=== PATIENT | male | born 1985 | race Caucasian/White ===

== ENCOUNTER 2020-05-26 11:45 | Emergency (ER) | payer MEDICARE, MEDICAID ==
[~2020-05-26] VITALS: Ht 190.5 cm; Wt 165.6 kg
[2020-05-26] MEDS ORDERED: PROZAC10 M1 PO (11:57)
[2020-05-26] MEDS ORDERED: LITHIUM CARBON300 M3 PO (11:57)
[2020-05-26] MEDS ORDERED: VRAYLAR6 MG PO (11:58)
[2020-05-26] MEDS ORDERED: DEPAKOTE500 MG PO (11:58)
[2020-05-26 12:06] LABS: URINE BILIRUBIN NEGATIVE (Negative); URINE BLOOD NEGATIVE (Negative); URINE CLARITY CLEAR; URINE COLOR YELLOW; URINE GLUCOSE-RANDOM NEGATIVE (Negative); URINE KETONES NEGATIVE (Negative); URINE LEUKOCYTES-REFLEX NEGATIVE (Negative); URINE NITRITE-REFLEX NEGATIVE (Negative); URINE PROTEIN NEGATIVE (Negative); URINE SPECIFIC GRAVITY <= 1.005 (1.005-1.030); URINE UROBILINOGEN 0.2 E.U./dl (0.2-1.0)
[2020-05-26 12:28] LABS: ABSOLUTE BASOPHILS 0.1 thou/uL (0.0-0.2); ABSOLUTE EOSINOPHILS 0.2 thou/uL (0.0-0.7); ABSOLUTE LYMPHOCYTES 2.9 thou/uL (0.8-5.3); ABSOLUTE MONOCYTES 0.7 thou/uL (0.0-1.2); ABSOLUTE NEUTROPHILS 7.3 thou/uL (1.6-8.1); BASOPHILS 0.9 %; EOSINOPHILS 2.1 %; HEMOGLOBIN 14.3 gm/dL (14.0-18.0); MCH 29.9 pg (26.0-34.0); MCHC 34.9 g/dL (28.0-37.0); MCV 85.7 fL (80.0-100.0); MONOCYTES 6.4 %; MPV 9.8 fl. (7.2-11.1); NUCLEATED RBCS 0 /100WBC; PLATELET COUNT* 151 thou/uL (150-400); POLYS 64.6 %; RBC 4.78 mil/uL (4.50-6.00); RDW-CV 13.3 % (10.5-14.5); WBC 11.3 thou/uL (4.0-11.0)
[2020-05-26 12:39] LABS: CALCIUM 9.5 mg/dL (8.5-10.1); CREATININE 0.7 mg/dL (0.6-1.3)
[2020-05-26 12:41] LABS: POTASSIUM 2.7 mmol/L (3.5-5.1)
[2020-05-26 12:44] LABS: ALBUMIN 3.6 g/dL (3.4-5.0); TOTAL BILIRUBIN 0.4 mg/dL (<0.1-1.0); TOTAL PROTEIN 6.8 g/dL (6.4-8.2)
[2020-05-26] MEDS ORDERED: NORCO 5-325 TA1 EAC2 PO (14:42)
[2020-05-26] MEDS ORDERED: ONDANSETRON HCL4 M2 PO (14:43)
[2020-05-26] MEDS ORDERED: POTASSIUM20 PO (14:50)
[2020-05-26 15:08] VITALS: BP 138/65
== END 2020-05-26 15:00 | disposition home or self-care (01) ==
LOC: M.ERS 11:45
PROVIDERS: Family Medicine
DX: E87.6 Hypokalemia (principal); R10.31 Right lower quadrant pain; Z88.8 Allergy status to other drugs, medicaments and biological substances

== ENCOUNTER 2020-05-27 07:24 | Emergency (ER) | payer MEDICARE, MEDICAID ==
[~2020-05-27] VITALS: Ht 190.5 cm; Wt 165.6 kg
[~2020-05-27 07:24] MED LIST: DEPAKOTE500 MG PO; LITHIUM CARBON300 M3 PO; NORCO 5-325 TA1 EAC2 PO; ONDANSETRON HCL4 M2 PO; POTASSIUM20 PO; PROZAC10 M1 PO; VRAYLAR6 MG PO
[2020-05-27 07:57] LABS: ABSOLUTE BASOPHILS 0.1 thou/uL (0.0-0.2); ABSOLUTE EOSINOPHILS 0.3 thou/uL (0.0-0.7); ABSOLUTE LYMPHOCYTES 2.1 thou/uL (0.8-5.3); ABSOLUTE MONOCYTES 0.5 thou/uL (0.0-1.2); ABSOLUTE NEUTROPHILS 6.3 thou/uL (1.6-8.1); BASOPHILS 0.9 %; HEMATOCRIT 40.3 % (42.0-52.0); LYMPHOCYTES 22.6 %; MCH 29.6 pg (26.0-34.0); MCHC 34.6 g/dL (28.0-37.0); MCV 85.5 fL (80.0-100.0); MONOCYTES 5.7 %; MPV 9.6 fl. (7.2-11.1); NUCLEATED RBCS 0 /100WBC; PLATELET COUNT* 143 thou/uL (150-400); POLYS 67.8 %; RBC 4.72 mil/uL (4.50-6.00); RDW-CV 13.1 % (10.5-14.5); WBC 9.3 thou/uL (4.0-11.0)
[2020-05-27 08:04] LABS: CALCIUM 8.9 mg/dL (8.5-10.1); CREATININE 0.6 mg/dL (0.6-1.3); POTASSIUM 3.1 mmol/L (3.5-5.1)
[2020-05-27 08:08] LABS: ALBUMIN 3.4 g/dL (3.4-5.0); TOTAL BILIRUBIN 0.4 mg/dL (<0.1-1.0); TOTAL PROTEIN 6.4 g/dL (6.4-8.2)
[2020-05-27 08:42] VITALS: BP 152/81
== END 2020-05-27 08:45 | disposition home or self-care (01) ==
LOC: M.ERS 07:24
PROVIDERS: Family Medicine
DX: B34.9 Viral infection, unspecified (principal); Z20.828 Contact with and (suspected) exposure to other viral communicable diseases; Z88.8 Allergy status to other drugs, medicaments and biological substances

== ENCOUNTER 2020-08-13 16:22 | Emergency (ER) | payer MEDICARE, MEDICAID ==
[~2020-08-13] VITALS: Ht 190.5 cm; Wt 174.6 kg
[~2020-08-13 16:22] MED LIST changes: -PROZAC10 M1 PO; +PROZAC20 M1 PO
[2020-08-13 16:25] VITALS: BP 162/103
[2020-08-13] MEDS ORDERED: LATUDA80 MG PO (16:45)
== END 2020-08-13 17:02 | disposition home or self-care (01) ==
LOC: M.ERS 16:22
DX: Z00.8 Encounter for other general examination (principal); F17.210 Nicotine dependence, cigarettes, uncomplicated; Z88.8 Allergy status to other drugs, medicaments and biological substances

== ENCOUNTER 2020-08-21 11:33 | Emergency (ER) | payer MEDICARE, MEDICAID ==
[~2020-08-21] VITALS: Ht 193 cm; Wt 145.2 kg
[~2020-08-21 11:33] MED LIST changes: +LATUDA80 MG PO
[2020-08-21] MEDS ORDERED: PRAVASTATIN SOD20 MG PO (11:44)
[2020-08-21 11:59] LABS: HEMATOCRIT 39.8 % (42.0-52.0); HEMOGLOBIN 13.8 gm/dL (14.0-18.0); MCH 29.7 pg (26.0-34.0); MCHC 34.7 g/dL (28.0-37.0); MCV 85.5 fL (80.0-100.0); MPV 10.5 fl. (7.2-11.1); NUCLEATED RBCS 0 /100WBC; PLATELET COUNT* 144 thou/uL (150-400); RBC 4.66 mil/uL (4.50-6.00); RDW-CV 13.1 % (10.5-14.5); WBC 12.1 thou/uL (4.0-11.0)
[2020-08-21 12:08] LABS: CREATININE 0.6 mg/dL (0.6-1.3)
[2020-08-21 12:13] LABS: ALBUMIN 3.6 g/dL (3.4-5.0); TOTAL BILIRUBIN 0.6 mg/dL (<0.1-1.0); TOTAL PROTEIN 6.6 g/dL (6.4-8.2)
[2020-08-21 12:43] LABS: URINE BILIRUBIN NEGATIVE (Negative); URINE BLOOD NEGATIVE (Negative); URINE CLARITY CLEAR; URINE COLOR YELLOW; URINE GLUCOSE-RANDOM NEGATIVE (Negative); URINE KETONES NEGATIVE (Negative); URINE LEUKOCYTES-REFLEX TRACE (Negative); URINE NITRITE-REFLEX NEGATIVE (Negative); URINE PROTEIN NEGATIVE (Negative); URINE UROBILINOGEN 0.2 E.U./dl (0.2-1.0)
[2020-08-21 12:59] LABS: ABSOLUTE EOSINOPHILS 0.2 thou/uL (0.0-0.7); ABSOLUTE MONOCYTES 0.8 thou/uL (0.0-1.2); ATYPICAL LYMPHS 6 %; PLATELET ESTIMATE ADEQUATE
[2020-08-21 13:05] LABS: SQUAMOUS 0-3 Few /LPF (0-3); URINE WBC-REFLEX 0-5 Rare /HPF (0-5)
[2020-08-21 13:06] LABS: BACTERIA-REFLEX 1-9 Few /HPF (None Seen); CASTS None Seen /LPF (None Seen); CRYSTALS None Seen /LPF (None Seen); MUCUS None Seen strn/LPF (None Seen); URINE RBC 0-2 Rare /HPF (0-2)
[2020-08-21] MEDS ORDERED: KLOR-CON M2020 MEQ PO (13:28)
[2020-08-21 13:39] VITALS: BP 147/90
--- NOTE | 2020-08-21 17:31 | EKG ---
[place] [address] ELECTROCARDIOGRAM REPORT Name: GABRIEL,TRUNG T Room: 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[employer] : 1985 Requested By: Tl Kruger Order Number: [id number] MD: David Raymundo Measurements Intervals [place] Rate: 61 P: 12 WI: 203 QRS: 18 QRSD: 107 T: 55 QT: 416 QTc: 419 Interpretive Statements Sinus rhythm Borderline prolonged WI interval Baseline wander in lead(s) V2 No previous ECG available for comparison Electronically Signed On 08-21-2020 17:31:25 BLOOD BANK BOOKING CLERK by David Raymundo [email or web address] <ELECTRONICALLY SIGNED> By: David Raymundo MD, [facility] 08/21/20 1731 1135 1135 David Raymundo MD, [facility] /EPI
== END 2020-08-21 13:40 | disposition home or self-care (01) ==
LOC: M.ERS 11:33
PROVIDERS: Nurse Practitioner
DX: R20.0 Anesthesia of skin (principal); R11.0 Nausea; R42 Dizziness and giddiness; Z98.890 Other specified postprocedural states; E78.00 Pure hypercholesterolemia, unspecified; E66.9 Obesity, unspecified; Z68.39 Body mass index [BMI] 39.0-39.9, adult; Z79.899 Other long term (current) drug therapy; Z88.8 Allergy status to other drugs, medicaments and biological substances; F17.210 Nicotine dependence, cigarettes, uncomplicated

== ENCOUNTER 2020-09-29 21:47 | Emergency (ER) | payer MEDICARE, MEDICAID ==
[~2020-09-29] VITALS: Ht 190.5 cm; Wt 172.4 kg
[~2020-09-29 21:47] MED LIST changes: +KLOR-CON M2020 MEQ PO; +PRAVASTATIN SOD20 MG PO
[2020-09-29 22:50] LABS: ABSOLUTE BASOPHILS 0.1 thou/uL (0.0-0.2); ABSOLUTE EOSINOPHILS 0.3 thou/uL (0.0-0.7); ABSOLUTE LYMPHOCYTES 3.7 thou/uL (0.8-5.3); ABSOLUTE MONOCYTES 0.8 thou/uL (0.0-1.2); ABSOLUTE NEUTROPHILS 7.5 thou/uL (1.6-8.1); BASOPHILS 0.9 %; EOSINOPHILS 2.5 %; HEMATOCRIT 41.7 % (42.0-52.0); HEMOGLOBIN 14.2 gm/dL (14.0-18.0); LYMPHOCYTES 29.7 %; MCH 29.2 pg (26.0-34.0); MCHC 33.9 g/dL (28.0-37.0); MCV 86.1 fL (80.0-100.0); MONOCYTES 6.6 %; MPV 9.6 fl. (7.2-11.1); NUCLEATED RBCS 0 /100WBC; PLATELET COUNT* 153 thou/uL (150-400); POLYS 60.3 %; RBC 4.85 mil/uL (4.50-6.00); RDW-CV 13.5 % (10.5-14.5); WBC 12.4 thou/uL (4.0-11.0)
[2020-09-29 22:51] LABS: URINE BILIRUBIN NEGATIVE (Negative); URINE BLOOD NEGATIVE (Negative); URINE CLARITY CLEAR; URINE COLOR YELLOW; URINE GLUCOSE-RANDOM NEGATIVE (Negative); URINE KETONES NEGATIVE (Negative); URINE LEUKOCYTES-REFLEX NEGATIVE (Negative); URINE NITRITE-REFLEX NEGATIVE (Negative); URINE PROTEIN NEGATIVE (Negative); URINE SPECIFIC GRAVITY <= 1.005 (1.005-1.030); URINE UROBILINOGEN 0.2 E.U./dl (0.2-1.0)
[2020-09-29 23:02] LABS: CALCIUM 9.8 mg/dL (8.5-10.1); CREATININE 0.7 mg/dL (0.6-1.3); POTASSIUM 3.4 mmol/L (3.5-5.1)
[2020-09-29 23:06] LABS: ALBUMIN 3.7 g/dL (3.4-5.0); TOTAL BILIRUBIN 0.4 mg/dL (<0.1-1.0); TOTAL PROTEIN 7.1 g/dL (6.4-8.2)
[2020-09-30] MEDS ORDERED: ZOFRAN ODT4 MG PO (01:35)
[2020-09-30] MEDS ORDERED: HYDROCODON-ACE1 EAC7 PO (01:35)
[2020-09-30 01:48] VITALS: BP 171/104
== END 2020-09-30 01:50 | disposition home or self-care (01) ==
LOC: M.ERS 21:47
PROVIDERS: Personal Emergency Response Attendant
DX: R16.1 Splenomegaly, not elsewhere classified (principal); F17.210 Nicotine dependence, cigarettes, uncomplicated; Z88.8 Allergy status to other drugs, medicaments and biological substances

== ENCOUNTER 2020-10-01 06:12 | Emergency (ER) | payer MEDICARE, MEDICAID ==
[~2020-10-01] VITALS: Ht 190.5 cm; Wt 172.4 kg
[~2020-10-01 06:12] MED LIST changes: +HYDROCODON-ACE1 EAC7 PO; +ZOFRAN ODT4 MG PO
[2020-10-01 07:45] LABS: ABSOLUTE BASOPHILS 0.1 thou/uL (0.0-0.2); ABSOLUTE EOSINOPHILS 0.2 thou/uL (0.0-0.7); ABSOLUTE LYMPHOCYTES 2.4 thou/uL (0.8-5.3); ABSOLUTE MONOCYTES 0.8 thou/uL (0.0-1.2); ABSOLUTE NEUTROPHILS 6.1 thou/uL (1.6-8.1); BASOPHILS 0.8 %; EOSINOPHILS 2.4 %; HEMATOCRIT 40.7 % (42.0-52.0); HEMOGLOBIN 13.9 gm/dL (14.0-18.0); LYMPHOCYTES 24.9 %; MCH 29.3 pg (26.0-34.0); MCHC 34.1 g/dL (28.0-37.0); MCV 85.8 fL (80.0-100.0); MONOCYTES 8.2 %; MPV 10.6 fl. (7.2-11.1); NUCLEATED RBCS 0 /100WBC; PLATELET COUNT* 143 thou/uL (150-400); POLYS 63.7 %; RBC 4.75 mil/uL (4.50-6.00); RDW-CV 13.3 % (10.5-14.5); WBC 9.5 thou/uL (4.0-11.0)
[2020-10-01 07:50] LABS: CALCIUM 9.4 mg/dL (8.5-10.1); CREATININE 0.6 mg/dL (0.6-1.3); POTASSIUM 3.2 mmol/L (3.5-5.1)
[2020-10-01 07:54] LABS: ALBUMIN 3.6 g/dL (3.4-5.0); TOTAL BILIRUBIN 0.3 mg/dL (<0.1-1.0); TOTAL PROTEIN 6.8 g/dL (6.4-8.2)
[2020-10-01 08:43] VITALS: BP 157/74
--- NOTE | 2020-10-01 14:21 | EKG ---
[place] [address] ELECTROCARDIOGRAM REPORT Name: GABRIELTRUNG CHAN Room: 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
== END 2020-10-01 08:44 | disposition home or self-care (01) ==
LOC: M.ERS 06:12
PROVIDERS: Family Medicine
DX: R10.12 Left upper quadrant pain (principal); F17.210 Nicotine dependence, cigarettes, uncomplicated; Z88.8 Allergy status to other drugs, medicaments and biological substances

== ENCOUNTER → 2020-10-15 | Outpatient (CLI) | payer MEDICARE, MEDICAID | LOC: M.ULTRA 10:49 | PROVIDERS: ATTEND Internal Medicine Gastroenterology | DX: R16.2 Hepatomegaly with splenomegaly, not elsewhere classified (principal); D69.6 Thrombocytopenia, unspecified ==

== ENCOUNTER 2021-01-22 14:59 | Emergency (ER) | payer MEDICARE, MEDICAID ==
[~2021-01-22] VITALS: Ht 190.5 cm; Wt 165.6 kg
[2021-01-22 18:06] LABS: ABSOLUTE EOSINOPHILS 0.1 thou/uL (0.0-0.7); ABSOLUTE LYMPHOCYTES 2.7 thou/uL (0.8-5.3); ABSOLUTE MONOCYTES 0.4 thou/uL (0.0-1.2); ABSOLUTE NEUTROPHILS 4.1 thou/uL (1.6-8.1); BASOPHILS 0.2 %; EOSINOPHILS 1.5 %; HEMOGLOBIN 14.7 gm/dL (14.0-18.0); LYMPHOCYTES 36.9 %; MCHC 35.1 g/dL (28.0-37.0); MCV 82.6 fL (80.0-100.0); MONOCYTES 5.8 %; MPV 10.4 fl. (7.2-11.1); NUCLEATED RBCS 0 /100WBC; PLATELET COUNT* 127 thou/uL (150-400); POLYS 55.6 %; RBC 5.09 mil/uL (4.50-6.00); RDW-CV 13.1 % (10.5-14.5); WBC 7.4 thou/uL (4.0-11.0)
[2021-01-22 18:09] LABS: CALCIUM 9.6 mg/dL (8.5-10.1); CREATININE 0.7 mg/dL (0.6-1.3)
[2021-01-22 18:12] LABS: POTASSIUM 2.8 mmol/L (3.5-5.1)
[2021-01-22] MEDS ORDERED: KLOR-CON 10 ER10 MEQ PO (18:50)
[2021-01-22] MEDS ORDERED: MECLIZINE HCL25 M1 PO (18:50)
[2021-01-22 18:57] VITALS: BP 129/68
--- NOTE | 2021-01-23 10:20 | EKG ---
[place] [address] ELECTROCARDIOGRAM REPORT Name: GABRIELTRUNG T Room: 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[facility] : 1985 Requested By: Jack Owens Order Number: [id number] MD: Benjy Lynch Measurements Intervals [place] Rate: 57 P: 24 MS: 191 QRS: 37 QRSD: 115 T: 52 QT: 468 QTc: 456 Interpretive Statements Sinus rhythm Nonspecific intraventricular conduction delay Baseline wander in lead(s) V2 Compared to ECG 10/01/2020 07:48:46 no change Electronically Signed On 01-23-2021 10:20:07 CDT by Benjy Lynch [email or web address] <ELECTRONICALLY SIGNED> By: Benjy Lynch MD, [facility] 01/23/21 1020 1753 1753 Benjy Lynch MD, [facility] /EPI
== END 2021-01-22 18:59 | disposition home or self-care (01) ==
LOC: M.ERS 14:59
PROVIDERS: Nurse Practitioner Psychiatric/Mental Health
DX: R42 Dizziness and giddiness (principal); Z20.822 Contact with and (suspected) exposure to COVID-19; E87.6 Hypokalemia; R51.9 Headache, unspecified; R11.0 Nausea; F17.210 Nicotine dependence, cigarettes, uncomplicated; Z98.890 Other specified postprocedural states; Z88.8 Allergy status to other drugs, medicaments and biological substances

== ENCOUNTER 2021-02-09 23:25 | Emergency (ER) | payer MEDICARE, MEDICAID ==
[~2021-02-09] VITALS: Ht 190.5 cm; Wt 164.7 kg
--- NOTE | ~2021-02-09 | EMS ---
[address] [address] EMS Patient Care Report Name: TRUNG RIOS [id number]: 02/09/21 Attend Phys: Discharge: Date of : 87 Report #: [id number] THIS REPORT FOR: //name// Report Transmitted: 02/09/2021 23:01 EMS Care Summary [place] [facility] [employer] [facility] Incident 21-072 @ 02/09/2021 22:57 Incident Location [address] [place] [address] Patient TRUNG RIOS Male, 35 Years 1985 Patient Address [address] [place] [address] Patient History Hypertension (HTN),Hyperlipidemia,Bipolar II Disorder, Patient Allergies No known allergies, Patient Medications Atorvastatin, Prozac, Chief Complaint Kidney Pain Disposition Transported No Lights/[place] Dispatch Reason Sick Person Transported To [facility] Narrative Med 1 and Utility 1 were dispatched for a [age] year-old male c/o lower back pain and pain upon urination since this morning. Upon arrival, patient [place] [id number] EMS Patient Care Report Name: TRUNG RIOS Room: [facility]#: [id number] Admission: 02/09/21 Attend Phys: Discharge: Date of : 87 Report #: [id number] was standing our on the curb waiting for EMS. Patient was AOx3, and did not appear in any pain or distress. Patient reported he had a 10/10 pain. Patient was assisted to the ambulance and secured to the stretcher via seatbelts and Med 1 went en route to [facility]. In the ambulance, patients vitals were obtained and monitored throughout transport. Patient rested comfortably throughout transport. Hospital report was given via radio without any questions or orders being received or requested. Med 1 arrived at the hospital. Patient asked if he could walk into the hospital because the stretcher was not comfortable. The patient reported he felt well enough to walk in. Patient walked into the ER and was sent out to triage. Patient care was transferred to the ER Triage nurse. Med 1 returned back into service. [id number] KShook Initial Vitals @23:15R: 20,BP: 156/84,GCS: 15,SpO2: 98,Revised Trauma: 12, @23:05P: 84,R: 20,BP: 154/88,Pain: 0/10,GCS: 15,SpO2: 98,Revised Trauma: 12, Impression Back Pain Timeline 22:57,Call Received 22:57,Dispatched 22:57,En Route 23:00,On Scene 23:01,At Patient 23:02,Depart Scene 23:05,BP: 154/88 M,PULSE: 84,RR: 20 R,SPO2: 98 Ox,ETCO2: ,BG: ,PAIN: 0,GCS: 15, 23:15,BP: 156/84 M,PULSE: ,RR: 20 R,SPO2: 98 Ox,ETCO2: ,BG: ,PAIN: ,GCS: 15, 23:22,At Destination 23:42,Call Closed 23:42,In District Disclaimer v1.1 Copyright 2020 [employer] This EMS Care Summary contains data elements from the applicable legal record (which may be displayed differently). It is [place] [address] EMS Patient Care Report Name: GABRIELTRUNG T Room: [facility]#: [id number] Admission: 02/09/21 Attend Phys: Discharge: Date of : 87 Report #: [id number] information for the following purposes: continuity of care, clinical quality, and state data reporting. The complete legal record is available to ED staff and administrators of the receiving hospital in [employer] Patient Tracker. All data is provided "as is."
[~2021-02-09 23:25] MED LIST changes: +KLOR-CON 10 ER10 MEQ PO; +MECLIZINE HCL25 M1 PO
[2021-02-09] MEDS ORDERED: CARBAMAZEPINE100 M2 (23:29)
[2021-02-10 00:05] LABS: ABSOLUTE BASOPHILS 0.1 thou/uL (0.0-0.2); ABSOLUTE EOSINOPHILS 0.1 thou/uL (0.0-0.7); ABSOLUTE LYMPHOCYTES 2.9 thou/uL (0.8-5.3); ABSOLUTE MONOCYTES 0.8 thou/uL (0.0-1.2); ABSOLUTE NEUTROPHILS 5.6 thou/uL (1.6-8.1); BASOPHILS 1.1 %; EOSINOPHILS 1.3 %; HEMATOCRIT 41.8 % (42.0-52.0); HEMOGLOBIN 14.5 gm/dL (14.0-18.0); LYMPHOCYTES 30.3 %; MCH 28.7 pg (26.0-34.0); MCHC 34.7 g/dL (28.0-37.0); MCV 82.9 fL (80.0-100.0); MONOCYTES 8.2 %; MPV 10.2 fl. (7.2-11.1); NUCLEATED RBCS 0 /100WBC; PLATELET COUNT* 139 thou/uL (150-400); POLYS 59.1 %; RBC 5.05 mil/uL (4.50-6.00); RDW-CV 12.9 % (10.5-14.5); WBC 9.5 thou/uL (4.0-11.0)
[2021-02-10 00:08] LABS: URINE BILIRUBIN NEGATIVE (Negative); URINE BLOOD NEGATIVE (Negative); URINE CLARITY CLEAR; URINE COLOR YELLOW; URINE GLUCOSE-RANDOM NEGATIVE (Negative); URINE KETONES NEGATIVE (Negative); URINE LEUKOCYTES-REFLEX NEGATIVE (Negative); URINE NITRITE-REFLEX NEGATIVE (Negative); URINE PROTEIN NEGATIVE (Negative); URINE UROBILINOGEN 0.2 E.U./dl (0.2-1.0)
[2021-02-10 00:10] LABS: CREATININE 0.6 mg/dL (0.6-1.3); POTASSIUM 3.5 mmol/L (3.5-5.1)
[2021-02-10] MEDS ORDERED: MEDROLDOSEPACK PO (01:36)
[2021-02-10] MEDS ORDERED: FLEXERIL PO (01:36)
[2021-02-10 01:40] VITALS: BP 140/88
== END 2021-02-10 01:40 | disposition home or self-care (01) ==
LOC: M.ERS 23:25
PROVIDERS: Emergency Medicine
DX: M54.16 Radiculopathy, lumbar region (principal); F17.210 Nicotine dependence, cigarettes, uncomplicated; Z98.890 Other specified postprocedural states; Z79.899 Other long term (current) drug therapy; Z88.8 Allergy status to other drugs, medicaments and biological substances

== ENCOUNTER 2021-03-29 09:44 | Emergency (ER) | payer MEDICARE, MEDICAID ==
[~2021-03-29] VITALS: Ht 190.5 cm; Wt 165.6 kg
[~2021-03-29 09:44] MED LIST changes: +CARBAMAZEPINE100 M2; +FLEXERIL PO; +MEDROLDOSEPACK PO
[2021-03-29] MEDS ORDERED: LISINOPRIL10 MG PO (10:07)
[2021-03-29] MEDS ORDERED: CHLORPROMAZINE100 MG PO (10:07)
[2021-03-29] MEDS ORDERED: PRAVASTATIN SOD20 MG PO (10:08)
[2021-03-29] MEDS ORDERED: LITHIUM CARBON150 MG PO (10:08)
[2021-03-29 10:25] LABS: ABSOLUTE EOSINOPHILS 0.1 thou/uL (0.0-0.7); ABSOLUTE LYMPHOCYTES 2.5 thou/uL (0.8-5.3); ABSOLUTE MONOCYTES 0.6 thou/uL (0.0-1.2); ABSOLUTE NEUTROPHILS 5.2 thou/uL (1.6-8.1); BASOPHILS 0.3 %; EOSINOPHILS 1.4 %; HEMATOCRIT 42.3 % (42.0-52.0); HEMOGLOBIN 14.7 gm/dL (14.0-18.0); MCH 28.9 pg (26.0-34.0); MCHC 34.7 g/dL (28.0-37.0); MCV 83.2 fL (80.0-100.0); MONOCYTES 7.3 %; MPV 10.2 fl. (7.2-11.1); NUCLEATED RBCS 0 /100WBC; PLATELET COUNT* 139 thou/uL (150-400); RBC 5.09 mil/uL (4.50-6.00); RDW-CV 13.7 % (10.5-14.5); WBC 8.5 thou/uL (4.0-11.0)
[2021-03-29 10:36] LABS: CALCIUM 9.7 mg/dL (8.5-10.1); CREATININE 0.6 mg/dL (0.6-1.3); POTASSIUM 3.2 mmol/L (3.5-5.1)
[2021-03-29 10:41] LABS: ALBUMIN 3.8 g/dL (3.4-5.0); TOTAL BILIRUBIN 0.5 mg/dL (<0.1-1.0); TOTAL PROTEIN 7.2 g/dL (6.4-8.2)
[2021-03-29 10:41] LABS: URINE BILIRUBIN NEGATIVE (Negative); URINE BLOOD NEGATIVE (Negative); URINE CLARITY CLEAR; URINE COLOR YELLOW; URINE GLUCOSE-RANDOM NEGATIVE (Negative); URINE KETONES NEGATIVE (Negative); URINE LEUKOCYTES NEGATIVE (Negative); URINE NITRITE NEGATIVE (Negative); URINE PROTEIN NEGATIVE (Negative); URINE UROBILINOGEN 0.2 E.U./dl (0.2-1.0)
[2021-03-29 13:19] VITALS: BP 140/63
== END 2021-03-29 13:20 | disposition home or self-care (01) ==
LOC: M.ERS 09:44
PROVIDERS: Physician Assistant
DX: R16.1 Splenomegaly, not elsewhere classified (principal); R10.11 Right upper quadrant pain; R10.12 Left upper quadrant pain; R11.2 Nausea with vomiting, unspecified; R19.7 Diarrhea, unspecified; R63.4 Abnormal weight loss; I10 Essential (primary) hypertension; E78.00 Pure hypercholesterolemia, unspecified; F17.210 Nicotine dependence, cigarettes, uncomplicated; Z98.890 Other specified postprocedural states; F31.9 Bipolar disorder, unspecified; F25.9 Schizoaffective disorder, unspecified; Z79.899 Other long term (current) drug therapy; Z88.8 Allergy status to other drugs, medicaments and biological substances

== ENCOUNTER 2021-04-01 17:06 | Emergency (ER) | payer OTHER, MEDICAID ==
[~2021-04-01] VITALS: Ht 190.5 cm; Wt 165.6 kg
[~2021-04-01 17:06] MED LIST changes: +CHLORPROMAZINE100 MG PO; +LISINOPRIL10 MG PO; +LITHIUM CARBON150 MG PO
[2021-04-01 17:10] VITALS: BP 145/78
== END 2021-04-01 17:45 | disposition home or self-care (01) ==
LOC: M.ERS 17:06
DX: R10.12 Left upper quadrant pain (principal); R16.1 Splenomegaly, not elsewhere classified; I10 Essential (primary) hypertension; E78.00 Pure hypercholesterolemia, unspecified; F17.210 Nicotine dependence, cigarettes, uncomplicated; Z79.899 Other long term (current) drug therapy; Z88.8 Allergy status to other drugs, medicaments and biological substances; Z88.5 Allergy status to narcotic agent

== ENCOUNTER 2021-04-15 01:26 | Emergency (ER) | payer OTHER, MEDICAID ==
[~2021-04-15] VITALS: Ht 190.5 cm; Wt 165.6 kg
[2021-04-15 02:48] LABS: CALCIUM 9.4 mg/dL (8.5-10.1); CREATININE 0.7 mg/dL (0.6-1.3)
[2021-04-15 02:52] LABS: ALBUMIN 3.3 g/dL (3.4-5.0); TOTAL BILIRUBIN 0.5 mg/dL (<0.1-1.0); TOTAL PROTEIN 6.4 g/dL (6.4-8.2)
[2021-04-15 02:54] LABS: ABSOLUTE BASOPHILS 0.1 thou/uL (0.0-0.2); ABSOLUTE EOSINOPHILS 0.1 thou/uL (0.0-0.7); ABSOLUTE LYMPHOCYTES 2.9 thou/uL (0.8-5.3); ABSOLUTE MONOCYTES 0.8 thou/uL (0.0-1.2); ABSOLUTE NEUTROPHILS 6.9 thou/uL (1.6-8.1); BASOPHILS 1.2 %; EOSINOPHILS 1.2 %; HEMATOCRIT 38.9 % (42.0-52.0); HEMOGLOBIN 13.6 gm/dL (14.0-18.0); LYMPHOCYTES 26.7 %; MCH 29.1 pg (26.0-34.0); MCHC 34.9 g/dL (28.0-37.0); MCV 83.4 fL (80.0-100.0); MONOCYTES 7.5 %; MPV 10.3 fl. (7.2-11.1); NUCLEATED RBCS 0 /100WBC; PLATELET COUNT* 126 thou/uL (150-400); POLYS 63.4 %; RBC 4.67 mil/uL (4.50-6.00); RDW-CV 13.3 % (10.5-14.5); WBC 10.9 thou/uL (4.0-11.0)
[2021-04-15 03:12] LABS: URINE BILIRUBIN NEGATIVE (Negative); URINE BLOOD NEGATIVE (Negative); URINE CLARITY CLEAR; URINE COLOR YELLOW; URINE GLUCOSE-RANDOM NEGATIVE (Negative); URINE KETONES NEGATIVE (Negative); URINE LEUKOCYTES-REFLEX NEGATIVE (Negative); URINE NITRITE-REFLEX NEGATIVE (Negative); URINE PROTEIN NEGATIVE (Negative); URINE SPECIFIC GRAVITY 1.015 (1.005-1.030)
[2021-04-15 03:15] LABS: AMP/METHAMP Negative (Negative); BARBITURATES Negative (Negative); BENZODIAZEPINES Negative (Negative); COCAINE Negative (Negative); METHADONE Negative (Negative); OPIATES Negative (Negative); PCP Negative (Negative); THC Negative (Negative)
[2021-04-15] MEDS ORDERED: IBUPROFEN 600600 M1 PO (04:05)
[2021-04-15] MEDS ORDERED: DOXYCYCLINE 10100 MG PO (04:05)
[2021-04-15] MEDS ORDERED: HYDROCODON-ACE1 EAC7 PO (04:05)
[2021-04-15 04:23] VITALS: BP 158/72
[2021-04-16 05:20] LABS: POTASSIUM 2.9 mmol/L (3.5-5.1)
== END 2021-04-15 04:23 | disposition home or self-care (01) ==
LOC: M.ERS 01:26
PROVIDERS: Personal Emergency Response Attendant
DX: A69.1 Other Vincent's infections (principal); R10.31 Right lower quadrant pain; I10 Essential (primary) hypertension; F25.9 Schizoaffective disorder, unspecified; F31.9 Bipolar disorder, unspecified; E78.00 Pure hypercholesterolemia, unspecified; F17.210 Nicotine dependence, cigarettes, uncomplicated; Z98.890 Other specified postprocedural states; Z79.899 Other long term (current) drug therapy; Z88.8 Allergy status to other drugs, medicaments and biological substances

== ENCOUNTER 2021-05-22 09:13 | Emergency (ER) | payer OTHER, MEDICAID ==
[~2021-05-22] VITALS: Ht 190.5 cm; Wt 158.8 kg
[~2021-05-22 09:13] MED LIST changes: +DOXYCYCLINE 10100 MG PO; +IBUPROFEN 600600 M1 PO
[2021-05-22 10:12] LABS: ABSOLUTE EOSINOPHILS 0.1 thou/uL (0.0-0.7); ABSOLUTE LYMPHOCYTES 2.1 thou/uL (0.8-5.3); ABSOLUTE MONOCYTES 0.5 thou/uL (0.0-1.2); ABSOLUTE NEUTROPHILS 4.4 thou/uL (1.6-8.1); BASOPHILS 0.2 %; EOSINOPHILS 1.6 %; HEMATOCRIT 41.3 % (42.0-52.0); HEMOGLOBIN 14.3 gm/dL (14.0-18.0); LYMPHOCYTES 29.7 %; MCH 29.3 pg (26.0-34.0); MCHC 34.7 g/dL (28.0-37.0); MCV 84.5 fL (80.0-100.0); MONOCYTES 6.6 %; MPV 9.5 fl. (7.2-11.1); NUCLEATED RBCS 0 /100WBC; PLATELET COUNT* 121 thou/uL (150-400); POLYS 61.9 %; RBC 4.88 mil/uL (4.50-6.00); RDW-CV 13.1 % (10.5-14.5); WBC 7.1 thou/uL (4.0-11.0)
[2021-05-22 10:17] LABS: URINE BILIRUBIN NEGATIVE (Negative); URINE BLOOD NEGATIVE (Negative); URINE CLARITY CLEAR; URINE COLOR YELLOW; URINE GLUCOSE-RANDOM NEGATIVE (Negative); URINE KETONES NEGATIVE (Negative); URINE LEUKOCYTES-REFLEX NEGATIVE (Negative); URINE NITRITE-REFLEX NEGATIVE (Negative); URINE PROTEIN NEGATIVE (Negative); URINE UROBILINOGEN 0.2 E.U./dl (0.2-1.0)
[2021-05-22 10:21] LABS: AMP/METHAMP Negative (Negative); BARBITURATES Negative (Negative); BENZODIAZEPINES Negative (Negative); COCAINE Negative (Negative); METHADONE Negative (Negative); OPIATES Negative (Negative); PCP Negative (Negative); THC Negative (Negative)
[2021-05-22 10:25] LABS: CALCIUM 9.7 mg/dL (8.5-10.1); CREATININE 0.6 mg/dL (0.6-1.3); POTASSIUM 3.5 mmol/L (3.5-5.1)
[2021-05-22 10:30] LABS: ALBUMIN 3.4 g/dL (3.4-5.0); TOTAL BILIRUBIN 0.6 mg/dL (<0.1-1.0); TOTAL PROTEIN 6.4 g/dL (6.4-8.2)
[2021-05-22 10:53] LABS: ALCOHOL < 10 mg/dL (<10); SALICYLATE < 2.8 mg/dL (2.8-20.0)
[2021-05-22 10:59] LABS: ACETAMINOPHEN < 2 ug/mL (10-30)
[2021-05-22 16:50] VITALS: BP 136/70
== END 2021-05-22 16:50 ==
LOC: M.ERS 09:13
PROVIDERS: Emergency Medicine
DX: F31.9 Bipolar disorder, unspecified (principal); Z20.822 Contact with and (suspected) exposure to COVID-19; R45.851 Suicidal ideations; I10 Essential (primary) hypertension; E78.00 Pure hypercholesterolemia, unspecified; F17.210 Nicotine dependence, cigarettes, uncomplicated; Z88.5 Allergy status to narcotic agent; Z79.899 Other long term (current) drug therapy; Z98.890 Other specified postprocedural states